=== PATIENT | male | born 1940 | race Caucasian/White ===

== ENCOUNTER → 2024-11-01 08:15 | Outpatient (REF) | payer MEDICARE, OTHER, SELFPAY ==
[2024-11-01 08:03] LABS: Glucose 108 mg/dl (70-99)
== END ==
LOC: PET 08:15
PROVIDERS: ATTENDING PHYSICIAN Internal Medicine Hematology & Oncology
DX: C34.82 Malignant neoplasm of overlapping sites of left bronchus and lung (principal); Z79.899 Other long term (current) drug therapy
CPT/HCPCS: 36415; 82947